=== PATIENT | female | born 1990 ===

== ENCOUNTER 2019-07-19 01:54 | Inpatient (IN) | payer OTHER ==
[2019-07-19] MEDS ORDERED: Misoprostol 200 MCG Tab PO PRN (02:37)
[2019-07-19] MEDS ORDERED: Sodium Chloride 0.9% 2.5 ML Syringe FLUSH PRN (02:37)
[2019-07-19] MEDS ORDERED: Carboprost Tromethamine 250 MCG/1 ML Amp IM PRN (02:37)
[2019-07-19] MEDS ORDERED: Tranexamic Acid 1,000 MG in Sodium Chloride 0.9% 100 ML IV PRN (02:37)
[2019-07-19] MEDS ORDERED: Sodium Chloride 0.9% 10 ML Syringe FLUSH PRN (02:37)
[2019-07-19] MEDS ORDERED: Lidocaine 1% 50 ML MDV INJECT PRN (02:37)
[2019-07-19] MEDS ORDERED: Water For Irrigation,Sterile 1,000 ML Container IRR PRN (02:37)
[2019-07-19] MEDS ORDERED: Sodium Chloride 0.9% 10 ML SDV IV PRN (02:37)
[2019-07-19] MEDS ORDERED: Ondansetron 4 MG/2 ML SDV IVPUSH PRN (02:37)
[2019-07-19] MEDS ORDERED: Butorphanol 1 MG/ML SDV IVPUSH PRN (02:37)
[2019-07-19] MEDS ORDERED: Terbutaline 1 MG/ML SDV SUBCUT PRN (02:37)
[2019-07-19] MEDS ORDERED: Methylergonovine 0.2 MG/1 ML Amp IM PRN (02:37)
[2019-07-19] MEDS ORDERED: Oxytocin/0.9 % Sodium Chloride 30 UNIT/500 ML BAG IV SCH ×2 (02:45)
[2019-07-19] MEDS: Lactated Ringers 1,000 ML IV SCH ×4 (03:29→15:49)
[2019-07-19] MEDS ORDERED: Ropivacaine HCl/PF 100 ML ONE (09:35)
[2019-07-19] MEDS ORDERED: fentaNYL 100 MCG/2 ML SDV ONE (09:35)
--- NOTE | 2019-07-19 09:54 | PCM.PREANE ---
Preanesthetic Assessment - Anesthesia/Transfusion/Family Hx Anesthesia History: Prior Anesthesia Without Reaction Family History of Anesthesia Reaction: No Transfusion History: No Prior Transfusion(s) - Physical Assessment NPO Status Date: 07/19/19 NPO Status Time: 06:00 Height: 1.65 m Weight: 74.843 kg ASA Class: 1 - Lab Values: Laboratory Last Values WBC 11.76 K/uL (4.0-11.0) H 07/19/19 03:15 RBC 3.96 M/uL (4.30-5.90) L 07/19/19 03:15 Hgb 12.5 g/dL (12.0-16.0) 07/19/19 03:15 Hct 35.7 % (36.0-46.0) L 07/19/19 03:15 MCV 90.2 fL (80.0-98.0) 07/19/19 03:15 MCH 31.6 pg (27.0-32.0) 07/19/19 03:15 MCHC 35.0 g/dL (31.0-37.0) 07/19/19 03:15 RDW Std Deviation 43.6 fl (28.0-62.0) 07/19/19 03:15 RDW Coeff of Jessica 13 % (11.0-15.0) 07/19/19 03:15 Plt Count 204 K/uL (150-400) 07/19/19 03:15 MPV 10.20 fL (7.40-12.00) 07/19/19 03:15 Nucleated RBC % 0.0 /100WBC 07/19/19 03:15 Nucleated RBCs # 0 K/uL 07/19/19 03:15 Blood Type A NEGATIVE 07/19/19 03:15 Antibody Screen NEGATIVE 07/19/19 03:15 - Allergies Allergies/Adverse Reactions: Allergies Allergy/AdvReac Type Severity Reaction Status Date / Time No Known Allergies Allergy Verified 07/19/19 02:33 - Acknowledgements Anesthesia Type Planned: Epidural Pt an Appropriate Candidate for the Planned Anesthesia: Yes Alternatives and Risks of Anesthesia Discussed w Pt/Guardian: Yes Pt/Guardian Understands and Agrees with Anesthesia Plan: Yes PreAnesthesia Questionnaire - Past Health History Medical/Surgical History: Denies Medical/Surgical History 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 - Infectious Disease History Infectious Disease History: Reports: Chicken Pox - Past Surgical History HEENT Surgical History: Reports: Tonsillectomy - SUBSTANCE USE Smoking Status *Q: Never Smoker Tobacco Use Within Last Twelve Months: No Second Hand Smoke Exposure: No Recreational Drug Use History: No - HOME MEDS Home Medications: Home Meds Ascorbic Acid [Vitamin C] 1 tab PO DAILY 07/19/19 [History] Fish Oil/[place]-3 Fatty Acids [Fish Oil 1,000 MG] 1,000 mg PO DAILY 07/19/19 [ History] Pnv No.95/Ferrous Fum/Folic AC [ Caplet] 1 tab PO DAILY 07/19/19 [ History] valACYclovir HCl [Valtrex] 500 mg PO BID 07/19/19 [History] - CURRENT (IN HOUSE) MEDS Current Meds: Current Medications Butorphanol Tartrate (Stadol) 1 mg IVPUSH Q1H PRN PRN Reason: Pain Carboprost Tromethamine (Hemabate Ds) 250 mcg IM ASDIRECTED PRN PRN Reason: Post Hemorrhage Lactated Ringer's (Ringers, Lactated) 1,000 mls @ 150 mls/hr IV ASDIRECTED KE Last Admin: 07/19/19 09:44 Dose: 150 mls/hr Oxytocin/Sodium Chloride (Oxytocin 30 Unit/500 Ml-Ns) 30 unit in 500 mls @ 999 mls/hr IV TITRATE KE Oxytocin/Sodium Chloride (Oxytocin 30 Unit/500 Ml-Ns) 30 unit in 500 mls @ 2 mls/hr IV TITRATE KE; Protocol Last Titration: 07/19/19 07:45 Dose: 10 munits/min, 10 mls/hr Tranexamic Acid 1,000 mg/ (Sodium Chloride) 110 mls @ 660 mls/hr IV ONETIME PRN PRN Reason: Bleeding Lidocaine HCl (Xylocaine 1%) 50 ml INJECT ONETIME PRN PRN Reason: Laceration repair Methylergonovine Maleate (Methergine) 0.2 mg IM ASDIRECTED PRN PRN Reason: Post Hemorrhage Misoprostol (Cytotec) 200 mcg PO ONETIME PRN PRN Reason: Post Hemorrhage Ondansetron HCl (Zofran) 4 mg IVPUSH Q6H PRN PRN Reason: Nausea/Vomiting Sodium Chloride (Saline Flush) 10 ml FLUSH ASDIRECTED PRN PRN Reason: Keep Vein Open Sodium Chloride (Saline Flush) 2.5 ml FLUSH ASDIRECTED PRN PRN Reason: Keep Vein Open Sodium Chloride (Normal Saline) 10 ml IV ASDIRECTED PRN PRN Reason: IV Use Sterile Water (Sterile Water For Irrigation) 1,000 ml IRR ASDIRECTED PRN PRN Reason: delivery Terbutaline Sulfate (Brethine) 0.25 mg SUBCUT ASDIRECTED PRN PRN Reason: Tacysystole Discontinued Medications Fentanyl (Sublimaze) Confirm Administered Dose 100 mcg .ROUTE .STK-MED ONE Stop: 07/19/19 09:36 Ropivacaine (Naropin 0.2%) Confirm Administered Dose 100 mls @ as directed .ROUTE .STK-MED ONE Stop: 07/19/19 09:36
--- NOTE | 2019-07-19 09:58 | PCM.PRNOTE ---
- Free Text/Narrative Note: Anes Note Patient requests epidural for L&D. Sitting position. Level L3-L4 midline appraoch. Sterile technique. Chloraprep scrub to lumbar area. Epidural space easily achieved single attempt using YOLANDA technique. YOLANDA at 3 cm. Cath threaded 5 cm with ease. Cath secured at skin at 10 cm using sterile clear adhesive dressing. 0941 Test 3 cc 1.5% lido with epi negative 0944 Load 10 cc 0.2% ropivicaine with 1 mcg cc fentanyl in slow divided doses. 0948 Pump started with 90 cc same solution. Rate is 8 cc hr with 6 cc q 20 min prn bolus. Aparna well Time with patient [phone] Michael Goodman SENIOR NET ARCHITECT
[2019-07-19] MEDS ORDERED: Lanolin 100% Cream 7 GM Tube TOP PRN (13:29)
[2019-07-19] MEDS ORDERED: Ibuprofen 800 MG Tab PO PRN (13:29)
[2019-07-19] MEDS ORDERED: Benzocaine/Menthol 20%-0.5% Spray 78 GM Cannister TOP PRN (13:29)
[2019-07-19] MEDS ORDERED: Witch Hazel Medicated Pads 40/Jar TOP PRN (13:29)
[2019-07-19] MEDS ORDERED: Bisacodyl 10 MG Supp RECTAL PRN (13:29)
[2019-07-19] MEDS ORDERED: Acetaminophen 500 MG Tab PO PRN (13:29)
[2019-07-19] MEDS ORDERED: oxyCODONE 5 MG Tab PO PRN (13:29)
--- NOTE | 2019-07-19 13:35 | PCM.DEL ---
L & D Note - General Info Date of Service: 07/19/19 Mother's Due Date: 07/24/19 - Delivery Note Labor: Induced by Oxytocin Delivery Outcome: Livebirth Infant Delivery Method: Spontaneous Vaginal Delivery-Single Presentation: Right Occiput Anterior (BUDDY) Nuchal Cord: Present, Reduced (after delivery of body) Anesthesia Type: Epidural Amniotic Fluid Description: terminal meconium Laceration: 2nd Degree, Labial (bilateral), Sulcus (right) Suture type: Vicryl Suture size: 2-0 Placenta: Intact, Manual Removal, Retained Cord: 3 Vessels Estimated Blood Loss: 600 : Bulb Syringe, Cathether, Stimulated, Warmed Score 1 min: 8 Score 5 min: 9 - General Info Date of Service: 07/19/19 - Patient Data Weight - Most Recent: 74.843 kg Lab Results Last 24 Hours: Laboratory Results - last 24 hr 07/19/19 07/19/19 Range/Units 03:15 03:15 WBC 11.76 H (4.0-11.0) K/uL RBC 3.96 L (4.30-5.90) M/uL Hgb 12.5 (12.0-16.0) g/dL Hct 35.7 L (36.0-46.0) % MCV 90.2 (80.0-98.0) fL MCH 31.6 (27.0-32.0) pg MCHC 35.0 (31.0-37.0) g/dL RDW Std Deviation 43.6 (28.0-62.0) fl RDW Coeff of Jessica 13 (11.0-15.0) % Plt Count 204 (150-400) K/uL MPV 10.20 (7.40-12.00) fL Nucleated RBC % 0.0 /100WBC Nucleated RBCs # 0 K/uL Blood Type A NEGATIVE Antibody Screen NEGATIVE Med Orders - Current: Current Medications Acetaminophen (Tylenol Extra Strength) 1,000 mg PO Q6H PRN PRN Reason: Pain Benzocaine/Menthol (Dermoplast Pain Relief 20%-0.5% [place]) 78 gm TOP ASDIRECTED PRN PRN Reason: Perineal Comfort Measure Bisacodyl (Dulcolax) 10 mg RECTAL ONETIME PRN PRN Reason: Constipation Butorphanol Tartrate (Stadol) 1 mg IVPUSH Q1H PRN PRN Reason: Pain Carboprost Tromethamine (Hemabate Ds) 250 mcg IM ASDIRECTED PRN PRN Reason: Post Hemorrhage Docusate Sodium (Colace) 100 mg PO BID PRN PRN Reason: Constipation Emollient Ointment (Lansinoh Hpa) 0 gm TOP ASDIRECTED PRN PRN Reason: Sore Nipples Lactated Ringer's (Ringers, Lactated) 1,000 mls @ 150 mls/hr IV ASDIRECTED KE Last Admin: 07/19/19 11:43 Dose: 150 mls/hr Oxytocin/Sodium Chloride (Oxytocin 30 Unit/500 Ml-Ns) 30 unit in 500 mls @ 999 mls/hr IV TITRATE KE Oxytocin/Sodium Chloride (Oxytocin 30 Unit/500 Ml-Ns) 30 unit in 500 mls @ 2 mls/hr IV TITRATE KE; Protocol Last Titration: 07/19/19 10:04 Dose: 8 munits/min, 8 mls/hr Tranexamic Acid 1,000 mg/ (Sodium Chloride) 110 mls @ 660 mls/hr IV ONETIME PRN PRN Reason: Bleeding Ampicillin Sodium/Sulbactam (Sodium 3 gm/ Sodium Chloride) 100 mls @ 200 mls/ hr IV Q6H [facility] Stop: 07/20/19 08:14 Ibuprofen (Motrin) 800 mg PO Q8H PRN PRN Reason: Pain Lidocaine HCl (Xylocaine 1%) 50 ml INJECT ONETIME PRN PRN Reason: Laceration repair Methylergonovine Maleate (Methergine) 0.2 mg IM ASDIRECTED PRN PRN Reason: Post Hemorrhage Misoprostol (Cytotec) 200 mcg PO ONETIME PRN PRN Reason: Post Hemorrhage Ondansetron HCl (Zofran) 4 mg IVPUSH Q6H PRN PRN Reason: Nausea/Vomiting Oxycodone HCl (Oxycodone) 5 mg PO Q2H PRN PRN Reason: Pain Sodium Chloride (Saline Flush) 10 ml FLUSH ASDIRECTED PRN PRN Reason: Keep Vein Open Sodium Chloride (Saline Flush) 2.5 ml FLUSH ASDIRECTED PRN PRN Reason: Keep Vein Open Sodium Chloride (Normal Saline) 10 ml IV ASDIRECTED PRN PRN Reason: IV Use Sterile Water (Sterile Water For Irrigation) 1,000 ml IRR ASDIRECTED PRN PRN Reason: delivery Terbutaline Sulfate (Brethine) 0.25 mg SUBCUT ASDIRECTED PRN PRN Reason: Tacysystole Witch Joaquina (Tucks) 1 pad TOP ASDIRECTED PRN PRN Reason: comfort care Discontinued Medications Fentanyl (Sublimaze) Confirm Administered Dose 100 mcg .ROUTE .STK-MED ONE Stop: 07/19/19 09:36 Ropivacaine (Naropin 0.2%) Confirm Administered Dose 100 mls @ as directed .ROUTE .STK-MED ONE Stop: 07/19/19 09:36 - Problem List & Annotations (1) Vaginal delivery SNOMED Code(s): 059077228 Code(s): O80 - ENCOUNTER FOR FULL-TERM UNCOMPLICATED DELIVERY Status: Acute Current Visit: Yes - Problem List Review Problem List Initiated/Reviewed/Updated: Yes - My Orders Last 24 Hours: My Active Orders 07/19/19 02:04 Patient Status [ADT] Routine 07/19/19 02:37 Bedrest Bathroom Privileges [RC] ASDIRECTED Communication Order [RC] ASDIRECTED May Shower [RC] ASDIRECTED Notify Provider [RC] PRN Oxygen Therapy [RC] ASDIRECTED Up ad Alina [RC] ASDIRECTED Vital Signs [RC] PER UNIT ROUTINE Butorphanol [Stadol] 1 mg IVPUSH Q1H PRN Carboprost Tromethamine [Hemabate DS] 250 mcg IM ASDIRECTED PRN Lidocaine 1% [Xylocaine 1%] 50 ml INJECT ONETIME PRN Methylergonovine [Methergine] 0.2 mg IM ASDIRECTED PRN Ondansetron [Zofran] 4 mg IVPUSH Q6H PRN Sodium Chloride 0.9% [Normal Saline] 10 ml IV ASDIRECTED PRN Sodium Chloride 0.9% [Saline Flush] 10 ml FLUSH ASDIRECTED PRN Sodium Chloride 0.9% [Saline Flush] 2.5 ml FLUSH ASDIRECTED PRN Terbutaline [Brethine] 0.25 mg SUBCUT ASDIRECTED PRN Tranexamic Acid [Cyklokapron] 1,000 mg Sodium Chloride 0.9% [Normal Saline] 100 ml IV ONETIME Water For Irrigation,Sterile [Sterile Water for Irrigation] 1,000 ml IRR ASDIRECTED PRN miSOPROStoL [Cytotec] 200 mcg PO ONETIME PRN Scalp Electrode [WOMSER] Per Unit Routine Peripheral IV Insertion Adult [OM.PC] Routine Resuscitation Status Routine 07/19/19 02:45 Lactated Ringers [Ringers, Lactated] 1,000 ml IV ASDIRECTED Oxytocin/0.9 % Sodium Chloride [Oxytocin 30 Unit/500 ML-NS] 30 unit in 500 ml IV TITRATE Oxytocin/0.9 % Sodium Chloride [Oxytocin 30 Unit/500 ML-NS] 30 unit in 500 ml IV TITRATE Medication Administration Instruction [OM.PC] Q3H 07/19/19 03:15 RPR (SYPHILIS SERO) W/ RFLX [REF] Routine 07/19/19 13:29 Patient Status [ADT] Routine May Shower [RC] ASDIRECTED Notify Provider Vital Signs [RC] ASDIRECTED Up ad Alina [RC] ASDIRECTED Vital Signs [RC] PER UNIT ROUTINE RHIG WORKUP, [BBK] Routine Acetaminophen [Tylenol Extra Strength] 1,000 mg PO Q6H PRN Benzocaine/Menthol [Dermoplast Pain Relief 20%-0.5% [place]] 78 gm TOP ASDIRECTED PRN Docusate Sodium [Colace] 100 mg PO BID PRN Ibuprofen [Motrin] 800 mg PO Q8H PRN Lanolin [Lansinoh HPA] See Dose Instructions TOP ASDIRECTED PRN bisacodyL [Dulcolax] 10 mg RECTAL ONETIME PRN oxyCODONE 5 mg PO Q2H PRN witch Joaquina [Tucks] 1 pad TOP ASDIRECTED PRN Assess Lochia [WOMSER] Per Unit Routine Assess Uterine Involution [WOMSER] Per Unit Routine Breast Pump [WOMSER] Per Unit Routine Ice Therapy [OM.PC] Per Unit Routine Perineal Care [OM.PC] Per Unit Routine Peripheral IV Discontinue [OM.PC] Routine Sitz Bath [OM.PC] Per Unit Routine 07/19/19 13:30 Cooling Warming Measures [RC] ASDIRECTED BLOOD GAS ARTERIAL UMBILICAL [BG] Routine BLOOD GAS VENOUS UMBILICAL [BG] Routine 07/19/19 13:45 Ampicillin/Sulbactam Na [Unasyn] 3 gm Sodium Chloride 0.9% [Normal Saline] 100 ml IV Q6H 07/19/19 Breakfast Clear Liquid Diet [DIET] 07/19/19 Lunch Regular Diet [DIET] 07/20/19 05:11 HEMOGLOBIN/HEMATOCRIT,HH [HEME] Timed - Assessment Assessment:: 28yo s/p and manual extraction of placenta at 39w2d - Plan Plan:: 1. Admit to unit for care. 2. Manual extraction of placenta - Unasyn 3g IV q6h x24 hours for prophylaxis due to high risk for endometritis. 3. Rh negative - Rhogam if baby Rh+.
[2019-07-19] MEDS: Ampicillin/Sulbactam Na 3 GM in Sodium Chloride 0.9% 100 ML IV SCH ×3 (15:49→22:22)
--- NOTE | 2019-07-19 17:04 | OR ---
SURGEON: Letha Dumas MD DATE OF PROCEDURE: 07/19/2019 PREOPERATIVE DIAGNOSES: 1. A 28-year-old, G1, P0, at 39-2/7weeks' gestation. 2. Elective induction of labor. 3. Group B Streptococcus negative. 4. 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 POSTOPERATIVE DIAGNOSES: 1. A 28-year-old, G1, P 1-0-0-1, status post spontaneous vaginal delivery. 2. Retained placenta, status post manual extraction. 3. Bilateral labial, second-degree perineal, right sulcal lacerations. PROCEDURES: Spontaneous vaginal delivery, manual extraction of placenta, repair of perineal lacerations. PRIMARY SURGEON: Lteha Dumas MD ANESTHESIA: Epidural. ESTIMATED BLOOD LOSS: 600 mL. FINDINGS: Live male infant in cephalic presentation. score of 8 and 9 at one and five minutes respectively. Weight 3840 g. Nuchal cord x1. Terminal meconium. Retained placenta, appearing intact, and with 3-vessel cord after manual extraction. Bilateral labial, second-degree perineal, and right sulcal lacerations. INDICATIONS: This is a 28-year-old, G1, P0, who presented at 39-2/7 weeks' gestation for scheduled elective induction of labor. Upon presentation, her cervix was found to be 2 to 3 cm dilated. Pitocin was started for induction of labor. At approximately 3 cm dilated, she underwent artificial rupture of membranes with clear fluid noted. She received an epidural for pain control. She progressed to complete cervical dilation, and I was called to the room. DESCRIPTION OF PROCEDURE: I arrived to the room and began pushing with the patient. She was found to have complete cervical dilation via +3 station. While pushing, heart tones would intermittently drop to 50s and 60s with recovery to the one-teens. She continued to make steady progress and thus was allowed to continue pushing. She then delivered her . The head was delivered followed quickly by the shoulders and remainder of the body. Nuchal cord x1 was reduced after delivery of the body. The infant was placed on maternal abdomen. After approximately 60 seconds, cord was clamped and cut. Cord gases and cord blood were obtained. The perineum was inspected and bilateral labial, second-degree, and right sulcal lacerations were noted. The labial and second-degree perineal lacerations were repaired with 2-0 Vicryl while awaiting delivery of the placenta. After 30 minutes, the placenta had not delivered and decision was made to proceed with manual extraction of placenta. The placenta was inspected after extraction and it appeared to be intact. Manual curettage of the uterus returned no placental tissue. The right sulcal laceration was then repaired with 2-0 Vicryl. The patient will be placed on Unasyn prophylaxis for 24 hours. The patient and tolerated the delivery well. [id number] / MODL /[id number]
[2019-07-19] MEDS: Docusate Sodium 100 MG Cap PO PRN (20:12)
[2019-07-20] MEDS: Ampicillin/Sulbactam Na 3 GM in Sodium Chloride 0.9% 100 ML IV SCH ×3 (05:49→12:10)
--- NOTE | 2019-07-20 07:46 | PCM48HPAN ---
Post Anesthesia Note - EVALUATION WITHIN 48HRS OF ANESTHETIC Vital Signs in Normal Range: Yes Patient Participated in Evaluation: Yes Respiratory Function Stable: Yes Airway Patent: Yes Cardiovascular Function Stable: Yes Hydration Status Stable: Yes Pain Control Satisfactory: Yes Nausea and Vomiting Control Satisfactory: Yes Mental Status Recovered: Yes Vital Signs: Last Vital Signs Temp 36.5 C 07/20/19 04:00 Pulse 79 07/20/19 04:00 Resp 16 07/20/19 04:00 BP 102/61 07/20/19 04:00 Pulse Ox 96 07/20/19 04:00 - COMMENTS/OBSERVATIONS Free Text/Narrative:: Doing well. No problems noted.
[2019-07-20] MEDS: Docusate Sodium 100 MG Cap PO PRN (08:17)
--- NOTE | 2019-07-20 10:42 | PCM.PNPP ---
- General Info Date of Service: 07/20/19 Functional Status: Reports: Pain Controlled, Tolerating Diet, Ambulating, Urinating - Review of Systems General: Reports: Fatigue. Denies: Fever, Weakness Pulmonary: Denies: Shortness of Breath Cardiovascular: Denies: Chest Pain, Palpitations, Lightheadedness Gastrointestinal: Denies: Abdominal Pain, Nausea, Vomiting Genitourinary: Denies: Flank Pain Musculoskeletal: Reports: No Symptoms Skin: Reports: No Symptoms Neurological: Reports: No Symptoms Psychiatric: Reports: No Symptoms - General Info Date of Service: 07/20/19 - Patient Data Vital Signs - Most Recent: Last Vital Signs Temp 36.2 C 07/20/19 07:55 Pulse 65 07/20/19 07:55 Resp 16 07/20/19 07:55 BP 111/56 L 07/20/19 07:55 Pulse Ox 95 07/20/19 07:55 Weight - Most Recent: 74.843 kg I&O - Last 24 Hours: Intake & Output 07/19/19 07/20/19 07/20/19 22:59 06:59 14:59 Intake Total 200 Balance 200 Lab Results - Last 24 Hours: Laboratory Results - last 24 hr 07/19/19 07/19/19 07/20/19 Range/Units 12:36 13:29 05:43 Hgb 11.3 L (12.0-16.0) g/dL Hct 32.7 L (36.0-46.0) % Cord ABG pH 7.229 (7.18-7.38) Cord ABG Base Excess -7 (-10--2) Cord VBG pH 7.232 L (7.25-7.45) Cord VBG Base Excess -6 (-10--2) Rhogam Indicated NO, MOM+BABY RH NEG Med Orders - Current: Current Medications Acetaminophen (Tylenol Extra Strength) 1,000 mg PO Q6H PRN PRN Reason: Pain Last Admin: 07/20/19 03:20 Dose: 1,000 mg Benzocaine/Menthol (Dermoplast Pain Relief 20%-0.5% [place]) 78 gm TOP ASDIRECTED PRN PRN Reason: Perineal Comfort Measure Last Admin: 07/19/19 20:14 Dose: 1 can Bisacodyl (Dulcolax) 10 mg RECTAL ONETIME PRN PRN Reason: Constipation Butorphanol Tartrate (Stadol) 1 mg IVPUSH Q1H PRN PRN Reason: Pain Carboprost Tromethamine (Hemabate Ds) 250 mcg IM ASDIRECTED PRN PRN Reason: Post Hemorrhage Docusate Sodium (Colace) 100 mg PO BID PRN PRN Reason: Constipation Last Admin: 07/20/19 08:17 Dose: 100 mg Emollient Ointment (Lansinoh Hpa) 0 gm TOP ASDIRECTED PRN PRN Reason: Sore Nipples Last Admin: 07/19/19 20:14 Dose: 7 gram Lactated Ringer's (Ringers, Lactated) 1,000 mls @ 150 mls/hr IV ASDIRECTED KE Last Admin: 07/19/19 15:49 Dose: 150 mls/hr Oxytocin/Sodium Chloride (Oxytocin 30 Unit/500 Ml-Ns) 30 unit in 500 mls @ 999 mls/hr IV TITRATE KE Oxytocin/Sodium Chloride (Oxytocin 30 Unit/500 Ml-Ns) 30 unit in 500 mls @ 2 mls/hr IV TITRATE KE; Protocol Last Titration: 07/19/19 10:04 Dose: 8 munits/min, 8 mls/hr Tranexamic Acid 1,000 mg/ (Sodium Chloride) 110 mls @ 660 mls/hr IV ONETIME PRN PRN Reason: Bleeding Ibuprofen (Motrin) 800 mg PO Q8H PRN PRN Reason: Pain Last Admin: 07/19/19 20:13 Dose: 800 mg Lidocaine HCl (Xylocaine 1%) 50 ml INJECT ONETIME PRN PRN Reason: Laceration repair Methylergonovine Maleate (Methergine) 0.2 mg IM ASDIRECTED PRN PRN Reason: Post Hemorrhage Misoprostol (Cytotec) 200 mcg PO ONETIME PRN PRN Reason: Post Hemorrhage Ondansetron HCl (Zofran) 4 mg IVPUSH Q6H PRN PRN Reason: Nausea/Vomiting Oxycodone HCl (Oxycodone) 5 mg PO Q2H PRN PRN Reason: Pain Sodium Chloride (Saline Flush) 10 ml FLUSH ASDIRECTED PRN PRN Reason: Keep Vein Open Sodium Chloride (Saline Flush) 2.5 ml FLUSH ASDIRECTED PRN PRN Reason: Keep Vein Open Sodium Chloride (Normal Saline) 10 ml IV ASDIRECTED PRN PRN Reason: IV Use Sterile Water (Sterile Water For Irrigation) 1,000 ml IRR ASDIRECTED PRN PRN Reason: delivery Terbutaline Sulfate (Brethine) 0.25 mg SUBCUT ASDIRECTED PRN PRN Reason: Tacysystole Witch Joaquina (Tucks) 1 pad TOP ASDIRECTED PRN PRN Reason: comfort care Last Admin: 07/19/19 20:14 Dose: 1 tub Discontinued Medications Fentanyl (Sublimaze) Confirm Administered Dose 100 mcg .ROUTE .STK-MED ONE Stop: 07/19/19 09:36 Last Admin: 07/19/19 19:43 Dose: Not Given Ropivacaine (Naropin 0.2%) Confirm Administered Dose 100 mls @ as directed .ROUTE .STK-MED ONE Stop: 07/19/19 09:36 Last Admin: 07/19/19 19:43 Dose: Not Given Ampicillin Sodium/Sulbactam (Sodium 3 gm/ Sodium Chloride) 100 mls @ 200 mls/ hr IV Q6H [facility] Stop: 07/20/19 08:14 Last Admin: 07/19/19 21:27 Dose: Not Given Ampicillin Sodium/Sulbactam (Sodium 3 gm/ Sodium Chloride) 100 mls @ 200 mls/ hr IV Q6H [facility] Stop: 07/20/19 10:29 Last Admin: 07/20/19 05:49 Dose: 200 mls/hr - Infant Interaction Support Person: - Recovery Exam Fundal Tone: Firm Fundal Level: 1 Fingerbreadths Below Umbilicus Fundal Placement: Midline Lochia Amount: Small Lochia Color: Rubra/Red Perineum Description: Other (see below) Other Perinuem Description: bilateral labial and sulcous tears Episiotomy/Laceration: Approximated Bladder Status: Voiding - Exam General: Alert, Oriented Lungs: Normal Respiratory Effort Cardiovascular: Regular Rate, Regular Rhythm GI/Abdominal Exam: Normal Bowel Sounds, Soft Extremities: Pedal Edema (trace). No: Matt's Sign Skin: Warm, Dry, Intact Neurological: No New Focal Deficit Psy/Mental Status: Alert, Normal Affect, Normal Mood - Problem List & Annotations (1) Vaginal delivery SNOMED Code(s): 383114147 Code(s): O80 - ENCOUNTER FOR FULL-TERM UNCOMPLICATED DELIVERY Status: Acute Current Visit: Yes - Problem List Review Problem List Initiated/Reviewed/Updated: Yes - My Orders Last 24 Hours: My Active Orders 07/20/19 10:40 Ready for Discharge [RC] PER UNIT ROUTINE - Assessment Assessment:: 28yo s/p and manual extraction of placenta at 39w2d - Plan Plan:: Patient doing well overall, labs and VS are reassuring. Would like to go home later today. Discharge instructions reviewed. Follow up at [facility] 6 weeks. Discharge to home today.
== END 2019-07-20 15:55 | disposition home or self-care (01) | DRG 806 ==
LOC: MW.OBCHECK 01:54 → MW.OB 01:54 → MW.OBCHECK 02:04 → OBSVTOIN 13:29 → MW.OB 16:00
PROVIDERS: ADMIT Obstetrics & Gynecology; ATTEND Obstetrics & Gynecology
PROC: 10E0XZZ Delivery of Products of Conception, External Approach (ICD-10-PCS; principal; 2019-07-19)
PROC: 0KQM0ZZ Repair Perineum Muscle, Open Approach (ICD-10-PCS; 2019-07-19)
PROC: 10D17Z9 Manual Extraction of Products of Conception, Retained, Via Natural or Artificial Opening (ICD-10-PCS; 2019-07-19)
PROC: 10907ZC Drainage of Amniotic Fluid, Therapeutic from Products of Conception, Via Natural or Artificial Opening (ICD-10-PCS; 2019-07-19)
PROC: 3E033VJ Introduction of Other Hormone into Peripheral Vein, Percutaneous Approach (ICD-10-PCS; 2019-07-19)
PROC: 3E0R3BZ Introduction of Anesthetic Agent into Spinal Canal, Percutaneous Approach (ICD-10-PCS; 2019-07-19)
PROC: 00HU33Z Insertion of Infusion Device into Spinal Canal, Percutaneous Approach (ICD-10-PCS; 2019-07-19)
DX: O77.0 Labor and delivery complicated by meconium in amniotic fluid (principal); O72.0 Third-stage hemorrhage; Z37.0 Single live birth; O69.81X0 Labor and delivery complicated by cord around neck, without compression, not applicable or unspecified; O70.1 Second degree perineal laceration during delivery; Z3A.39 39 weeks gestation of pregnancy
CPT/HCPCS: 36415; 51702; 59025; 59409; 82803; 85014; 85018; 85027; 86592; 86593; 86850; 86900; 86901; A9270-GY; J0295; J2590; J7050; J7120